=== PATIENT | female | born 1940 | race Caucasian/White ===

== ENCOUNTER 2018-10-12 14:59 | Emergency (ER) | payer MEDICARE ==
[~2018-10-12] VITALS: Ht 167.6 cm; Wt 81.7 kg
[~2018-10-12 14:59] MED LIST: AMLO5 PO; ASPI81CH PO; ESTR2 PO; FURO40 PO; Hydrocodone-Ap1 EA20 PO; LEVSOD88 PO; LOSARTAN POTAS100 MG PO; METCAR500 PO; Omeprazole20 M1; POTA10T PO; Pravachol40 MG PO; SPIR50 PO; SUMA5NI
[2018-10-12 15:47] LABS: BASOPHILS ABSOLUTE AUTO 0.03 K/mm3 (0.00-0.23); BASOPHILS PERCENT AUTO 0 % (0-2); EOSINOPHILS ABSOLUTE AUTO 0.03 K/mm3 (0.00-0.68); EOSINOPHILS PERCENT AUTO 0 % (0-6); Hematocrit 38.6 % (33.0-51.0); Hemoglobin 12.7 g/dL (11.5-16.0); IMMATURE GRAN ABSOLUTE AUTO 0.04 K/mm3 (0.00-0.10); IMMATURE GRAN PERCENT AUTO 1 % (0-1); LYMPHOCYTES ABSOLUTE AUTO 1.65 K/mm3 (0.84-5.20); LYMPHOCYTES PERCENT AUTO 20 % (21-46); MONOCYTES ABSOLUTE AUTO 0.33 K/mm3 (0.16-1.47); MONOCYTES PERCENT AUTO 4 % (4-13); Mean Corpuscular HGB 31.2 pg (26.0-34.0); Mean Corpuscular HGB Conc 32.9 g/dL (31.5-36.5); Mean Corpuscular Volume 95 fL (80-100); Mean Platelet Volume 9.7 fL (9.1-12.4); NEUTROPHILS ABSOLUTE AUTO 6.32 K/mm3 (1.96-9.15); NEUTROPHILS PERCENT AUTO 75 % (41-73); Platelet Count 326 K/mm3 (150-400); RDW Coefficient Variation 12.9 % (11.7-14.2); RDW Standard Deviation 44.5 fL (35.1-46.3); Red Blood Cell Count 4.07 M/mm3 (3.80-5.20)
[2018-10-12 16:31] LABS: Alanine Aminotransfer (ALT/SGP 30 U/L (12-78); Albumin, Blood 3.8 g/dL (3.4-5.0); Alk Phos 27 U/L (50-136); Anion Gap 6 mmol/L (6-16); Aspartate Aminotrans (AST/SGOT 25 U/L (12-37); Bilirubin, Total 0.3 mg/dL (0.1-1.0); Blood Urea Nitrogen 23 mg/dL (8-24); Bun/Creatinine Ratio 23.2 (12.0-20.0); CO2, Blood 30 mmol/L (21-32); Calcium, Blood 9.1 mg/dL (8.5-10.1); Chloride, Blood 103 mmol/L (98-108); Creatinine, Blood 0.99 mg/dL (0.40-1.00); Globulin, Blood 3.7 g/dL (2.2-4.0); Glomerular Filtration Rate 58 (60-); Glucose, Blood 114 mg/dL (70-99); Potassium, Blood 3.8 mmol/L (3.5-5.5); Sodium, Blood 139 mmol/L (136-145); Total Protein, Blood 7.5 g/dL (6.4-8.2); Troponin I <0.015 ng/mL (0.000-0.040)
[2018-10-12] MEDS ORDERED: FENO160 PO (17:51)
[2018-10-12] MEDS ORDERED: Carvedilol6.25 MG PO (17:54)
== END 2018-10-12 18:20 | disposition home or self-care (01) ==
LOC: ER 14:59
PROVIDERS: Physician Assistant
DX: R07.89 Other chest pain (principal); E03.9 Hypothyroidism, unspecified; K21.9 Gastro-esophageal reflux disease without esophagitis; I10 Essential (primary) hypertension; Z88.2 Allergy status to sulfonamides; Z88.8 Allergy status to other drugs, medicaments and biological substances; Z79.82 Long term (current) use of aspirin; Z79.899 Other long term (current) drug therapy
CPT/HCPCS: 36415; 71046; 80053; 84484; 85025; 93005; 93010; 99285-25

== ENCOUNTER → 2019-11-13 | Outpatient (CLI) | payer MEDICARE ==
[~2019-11-13] MED LIST changes: -ASPI81CH PO; +ATOR20 PO; +Aspir 8181 MG PO; +CALCIUM CARBON650 MG PO; +CENTRUM SILVER1 EAC2 PO; +Carvedilol6.25 MG PO; +Cranberry300 MG PO; +DICLOFENAC SOD100 GM TOP; -ESTR2 PO; +ESTRADIOL0.5 MG PO; +EUTHYROX88 MCG PO; +FENO160 PO; +FISH OIL-VIT D1 EACH PO; -LEVSOD88 PO; +MAGNESIUM OXID500 MG PO; +MELATONIN5 M1 PO; +MELATONIN5 M3; +MULVITB PO; +OXYC5 PO; -Omeprazole20 M1; +Omeprazole20 M1 PO; +Robaxin750 MG PO; +TOCO1000 PO; +TORSE20 PO; +UBID10 PO; +Vitamin B-121000 MCG PO
[2019-11-13 19:24] LABS: BASOPHILS ABSOLUTE AUTO 0.03 K/mm3 (0.00-0.23); BASOPHILS PERCENT AUTO 1 % (0-2); EOSINOPHILS ABSOLUTE AUTO 0.25 K/mm3 (0.00-0.68); EOSINOPHILS PERCENT AUTO 5 % (0-6); Hematocrit 39.3 % (33.0-51.0); Hemoglobin 12.6 g/dL (11.5-16.0); IMMATURE GRAN ABSOLUTE AUTO 0.01 K/mm3 (0.00-0.10); IMMATURE GRAN PERCENT AUTO 0 % (0-1); LYMPHOCYTES PERCENT AUTO 44 % (21-46); MONOCYTES ABSOLUTE AUTO 0.38 K/mm3 (0.16-1.47); MONOCYTES PERCENT AUTO 8 % (4-13); Mean Corpuscular HGB 30.6 pg (26.0-34.0); Mean Corpuscular HGB Conc 32.1 g/dL (31.5-36.5); Mean Corpuscular Volume 95 fL (80-100); Mean Platelet Volume 10.7 fL (9.1-12.4); NEUTROPHILS ABSOLUTE AUTO 2.14 K/mm3 (1.96-9.15); NEUTROPHILS PERCENT AUTO 43 % (41-73); Platelet Count 269 K/mm3 (150-400); RDW Standard Deviation 42.5 fL (35.1-46.3); Red Blood Cell Count 4.12 M/mm3 (3.80-5.20); White Blood Cell Count 5.01 K/mm3 (4.00-11.30)
[2019-11-13 20:29] LABS: Albumin, Blood 4.2 g/dL (3.4-5.0); Albumin/Globulin Ratio 1.2 (0.8-1.8); Bilirubin, Total 0.2 mg/dL (0.1-1.0); Bun/Creatinine Ratio 28.9 (12.0-20.0); Calcium, Blood 10.5 mg/dL (8.5-10.1); Creatinine, Blood 1.28 mg/dL (0.40-1.00); Globulin, Blood 3.6 g/dL (2.2-4.0); Potassium, Blood 3.8 mmol/L (3.5-5.5); Total Protein, Blood 7.8 g/dL (6.4-8.2)
== END | disposition home or self-care (01) ==
LOC: LAB 19:11 → LAB SHORT 19:11
PROVIDERS: Emergency Medicine
DX: R42 Dizziness and giddiness (principal)
CPT/HCPCS: 80053; 85025

== ENCOUNTER 2019-11-28 14:43 | Inpatient (IN) | payer MEDICARE ==
[~2019-11-28] VITALS: Ht 167.6 cm; Wt 80.1 kg
[~2019-11-28 14:43] MED LIST changes: -ATOR20 PO; -Aspir 8181 MG PO; -CALCIUM CARBON650 MG PO; -CENTRUM SILVER1 EAC2 PO; -Carvedilol6.25 MG PO; -Cranberry300 MG PO; -DICLOFENAC SOD100 GM TOP; -ESTRADIOL0.5 MG PO; -EUTHYROX88 MCG PO; -FENO160 PO; -FISH OIL-VIT D1 EACH PO; -LOSARTAN POTAS100 MG PO; -MAGNESIUM OXID500 MG PO; -MELATONIN5 M1 PO; -MELATONIN5 M3; -MULVITB PO; -OXYC5 PO; -Omeprazole20 M1 PO; -POTA10T PO; -Robaxin750 MG PO; -TOCO1000 PO; -TORSE20 PO; -UBID10 PO; -Vitamin B-121000 MCG PO
[2019-11-28 15:38] LABS: BASOPHILS ABSOLUTE AUTO 0.02 K/mm3 (0.00-0.23); BASOPHILS PERCENT AUTO 0 % (0-2); EOSINOPHILS ABSOLUTE AUTO 0.26 K/mm3 (0.00-0.68); EOSINOPHILS PERCENT AUTO 5 % (0-6); Hematocrit 37.3 % (33.0-51.0); Hemoglobin 11.9 g/dL (11.5-16.0); IMMATURE GRAN PERCENT AUTO 0 % (0-1); LYMPHOCYTES ABSOLUTE AUTO 2.11 K/mm3 (0.84-5.20); LYMPHOCYTES PERCENT AUTO 43 % (21-46); MONOCYTES ABSOLUTE AUTO 0.38 K/mm3 (0.16-1.47); MONOCYTES PERCENT AUTO 8 % (4-13); Mean Corpuscular HGB 30.4 pg (26.0-34.0); Mean Corpuscular HGB Conc 31.9 g/dL (31.5-36.5); Mean Corpuscular Volume 95 fL (80-100); Mean Platelet Volume 10.5 fL (9.1-12.4); NEUTROPHILS ABSOLUTE AUTO 2.11 K/mm3 (1.96-9.15); NEUTROPHILS PERCENT AUTO 43 % (41-73); Platelet Count 299 K/mm3 (150-400); RDW Standard Deviation 41.9 fL (35.1-46.3); Red Blood Cell Count 3.91 M/mm3 (3.80-5.20); White Blood Cell Count 4.88 K/mm3 (4.00-11.30)
[2019-11-28 16:14] LABS: Alanine Aminotransfer (ALT/SGP 20 U/L (12-78); Albumin, Blood 3.8 g/dL (3.4-5.0); Alk Phos 37 U/L (50-136); Anion Gap 6 mmol/L (6-16); Aspartate Aminotrans (AST/SGOT 16 U/L (12-37); Bilirubin, Total 0.2 mg/dL (0.1-1.0); Blood Urea Nitrogen 28 mg/dL (8-24); Bun/Creatinine Ratio 25.2 (12.0-20.0); CO2, Blood 29 mmol/L (21-32); Calcium, Blood 9.7 mg/dL (8.5-10.1); Chloride, Blood 105 mmol/L (98-108); Creatinine, Blood 1.11 mg/dL (0.40-1.00); Glomerular Filtration Rate 51 (60-); Glucose, Blood 96 mg/dL (70-99); Potassium, Blood 4.2 mmol/L (3.5-5.5); Sodium, Blood 140 mmol/L (136-145); Total Protein, Blood 7.8 g/dL (6.4-8.2); Troponin I <0.015 ng/mL (0.000-0.040)
[2019-11-28] MEDS ORDERED: FISH OIL-VIT D1 EACH PO (16:19)
[2019-11-28] MEDS ORDERED: MULVITB PO (16:21)
[2019-11-28] MEDS ORDERED: CENTRUM SILVER1 EAC2 PO (16:21)
[2019-11-28] MEDS ORDERED: CALCIUM CARBON650 MG PO (16:23)
[2019-11-28] MEDS ORDERED: TOCO1000 PO (16:23)
[2019-11-28] MEDS ORDERED: MAGNESIUM OXID500 MG PO (16:24)
[2019-11-28] MEDS ORDERED: UBID10 PO (16:24)
[2019-11-28] MEDS ORDERED: DICLOFENAC SOD100 GM TOP (16:24)
[2019-11-28] MEDS ORDERED: Robaxin750 MG PO (16:29)
[2019-11-28] MEDS ORDERED: Cranberry300 MG PO (16:30)
[2019-11-28] MEDS ORDERED: OXYC5 PO ×2 (16:32→20:46)
[2019-11-28] MEDS ORDERED: Vitamin B-121000 MCG PO (16:33)
[2019-11-28] MEDS ORDERED: MELATONIN5 M1 PO (16:33)
[2019-11-28] MEDS ORDERED: POTA10T PO (18:24)
[2019-11-28] MEDS ORDERED: LOSARTAN POTAS100 MG PO (18:25)
[2019-11-28] MEDS ORDERED: Omeprazole20 M1 PO (18:25)
[2019-11-28] MEDS ORDERED: FENO160 PO (18:25)
[2019-11-28] MEDS ORDERED: TORSE20 PO (18:26)
[2019-11-28] MEDS ORDERED: Carvedilol6.25 MG PO (18:27)
[2019-11-28] MEDS ORDERED: EUTHYROX88 MCG PO (18:27)
[2019-11-28] MEDS ORDERED: ESTRADIOL0.5 MG PO (18:28)
[2019-11-28] MEDS ORDERED: Aspir 8181 MG PO (18:29)
[2019-11-28 19:24] LABS: International Normalized Ratio 0.99; Prothrombin Time Results 10.6 Sec (9.7-11.5)
[2019-11-28] MEDS ORDERED: MELATONIN5 M3 (20:44)
--- NOTE | 2019-11-28 21:00 | NUR ---
PATIENT ADMITTED TO THE FLOOR FOR CHEST PAIN, UNSTABLE ANGINA. AOX3, INDEPENDENT, VERY ACTIVE IN LIFE. 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 HAS BEEN HAVING CHEST PRESSURE MID STERNUM OFF AND ON FOR SEVERAL WEEKS, BUT CONSTANT THE LAST FEW DAYS. PRESSURE GOT MORE SEVERE TONIGHT RANGING AROUND 8/10. SHE HAS BEEN HAVING SOB WHEN SHE WALKS ACROSS HER HOME, LIGHTHEADNESS, BLURRED VISION OFF AND ON, DECREASE IN HER ACTVITY, AND FEELING MORE FATIQUED THEN USUAL. WEIGHT GAIN OF 6 LBS SHE REPORTS, HX OF CKD. NO EDEMA NOTED AT THIS TIME. STATES SHE FEELS LIKE IT COMES AROUND HER ABDOMIN. ABDOMIN SOFT AND ROUND, BT X4, HAD BM BUT FEELS SHE IS MORE ON THE CONSTIPATED SIDE. PRESSURE GETS BETTER WHEN SHE IS LAYING DOWN AND INCREASES WITH ACTIVITY. BP AT HOME HAS RANGED IN THE 140'S AND HR IS ALWAYS 50-60'S. SHE DOES GET OCCATIONAL HEADACHES AND RACING OF THE HEART. SHE IS SUPPOSE TO HAVE ZIO PATCH PLACED FOR 3 DAYS BUT HAS NOT HAD IT DONE. ANGIOGRAM PLANNED FOR AM. REST OF ASSESSMENT BENIGN. CALL LIGHT IN REACH. WILL ADMINISTER HER MEDS.
[2019-11-29 05:30] LABS: Albumin, Blood 3.1 g/dL (3.4-5.0); Albumin/Globulin Ratio 0.9 (0.8-1.8); Bilirubin, Total 0.2 mg/dL (0.1-1.0); Bun/Creatinine Ratio 21.8 (12.0-20.0); Calcium, Blood 8.7 mg/dL (8.5-10.1); Creatinine, Blood 1.01 mg/dL (0.40-1.00); Globulin, Blood 3.5 g/dL (2.2-4.0); Potassium, Blood 3.7 mmol/L (3.5-5.5); Total Protein, Blood 6.6 g/dL (6.4-8.2)
--- NOTE | 2019-11-29 05:31 | NUR ---
SHIFT SUMMARY: PT WAS ADMITTED TO THE FLOOR FOR UNSTABLE ANGINA. CHEST PRESSURE FOR SEVERAL WEEKS BUT MORE CONSISTENT THE LAST SEVERAL DAYS. PRESSURE IS MIDSTERNUM, GETS WORSE WITH EATING AND DRINKING. OTHER SYMPTOMS INCLUDE: LIGHTHEADNESS OFF AND ON, BLURRED VISION, SOB WITH EXERTION, WEIGHT GAIN OF 6 LBS, FATIQUE, HEADACHES, RACING OF THE HEART. BLOOD PRESSURE AT HOME HAS BEEN IN THE 140'S, AND HR 50-60'S. HERE BP ALSO 140'S. VS WNL, AFEBRILE. IV HEPARIN STARTED AND NS RUNNING AT 100ML/HR. NPO AT MIDNIGHT. TELE RUNNING SINUS RYTHEM ALL NIGHT WITH NO EVENTS. WILL CONTINUE TO MONITOR, CALL LIGHT IN REACH.
[2019-11-29 08:16] LABS: CHOL/HDL RATIO 3.1; Cholesterol 196 mg/dL (50-200); HDL Cholesterol 64 mg/dL (>39); LDL/HDL RATIO 1.5; Low Density Lipoprotein Chol 97 mg/dL (0-110); Triglycerides 175 mg/dL (30-160); Very Low Density Lipoprot Chol 35 mg/dL (6-32)
--- NOTE | 2019-11-29 13:09 | NUR ---
Echocardiogram completed.
--- NOTE | 2019-11-29 18:24 | NUR ---
SHIFT SUMMARY PT A/O X4; PLEASANT AND IND IN THE ROOM. PT C/O OF "PRESSURE" IN HER CHEST THAT HAS REMAINED UNCHANGED SINCE ADMISSION. PT IS ON A HEPARIN DRIP AND HAD AN ECHO THIS AM. PT WAS TO HAVE AN ANGIO TODAY BUT IT HAS BEEN RESCHEDULED FOR TOMORROW DUE TO TIME CONSTRAINTS. CARDIAC DIET BUT NPO AT MIDNIGHT. VSS.
--- NOTE | 2019-11-29 19:29 | NUR ---
ASSUMED CARE. [place] REPORTS NO CHANGE. STILL HAVING SOB ON EXERTION. BLURRED VISION AND LIGHTHEADNESS OFF AND ON. EDEMA NOTED TO BLE +1, AND TRACE IN HANDS. CHEST PRESSURE IS UNCHANGED, DID REPORT IT GOT BETTER WHEN SHE WAS LAYING DOWN. ABDOMIN SOFT, TENDER, SEVERAL BM NOTED TODAY WITH LAST BEING LOOSE. WILL HOLD BOWEL CARE. DENIES ANY NEEDS AT THIS TIME. TELE SINUS. VS WNL. CALL LIGHT IN REACH.
--- NOTE | 2019-11-30 05:58 | NUR ---
SHIFT SUMMARY: PATIENT HAD A GOOD NIGHT. CHEST PRESSURE REMAINED THE SAME BUT OTHER SYMPTOMS WERE MINIMAL TO NONE. SHE HAD NO COMPLAINTS THIS SHIFT, WAS UP IN ROOM ON PHONE SITTING IN CHAIR. APPETITE IS GOOD, GOOD FLUID INTAKE. BLURRED VISION AND LIGHTHEADNESS STILL COMES AND GOES BUT NOT MUCH BEFORE SHE WAS HERE. HEPARIN DRIP ADJUSTED TWICE THIS SHIFT PER PHARMACY. IV FLUIDS CONTINUE TO INFUSE. NPO AFTER MIDNIGHT. NO ACUTE CHANGES WERE NOTED THIS SHIFT. CALL LIGHT IN REACH. VS WNL.
--- NOTE | 2019-11-30 11:27 | NUR ---
PT ARRIVED TO PCU 4 VIA BED FROM [facility] [place], SHE IS AWAKE IN GOOD CONDITION, TR BAND SITE IS CLEAR AND NO S/S OF BLEEDING OR BRUISING AT THIS TIME. NO INTERVENTION WAS DONE, WILL START DEFLATING IN AN HR. SHE STATES SHE FEELS OK. CALL LIGHT IN REACH.
--- NOTE | 2019-11-30 12:54 | NUR ---
HAVE STARTED DEFLATING THE TR BAND, DOING WELL, NO COMPLAINTS, V.S. STABLE. CALL LIGHT IN REACH.
--- NOTE | 2019-11-30 13:26 | NUR ---
TR BAND DEFLATED, WILL LEAVE ON FOR ONE HR, THEN REMOVE AND PLACE DRESSING IN PLACE. ALICIA IN TO SEE HER. CALL LIGHT IN REACH.
--- NOTE | 2019-11-30 14:40 | NUR ---
Patient is is sitting on EOB and alert. Patient tells me about her heart issues, the of her spouse, Ariel, on 05/29/19 and her nikki and family support system. I normalize patient's experience and provide therapeutic listening, grief support, pastoral certified addiction counselor and prayer. Patient responds well and displays evidence of catharsis and being comforted. I will continue to remain available to patient and family.
--- NOTE | 2019-11-30 17:29 | NUR ---
PT IS BEING DISCHARGED TO HOME, TR BAND IS OFF AND DRESSING IN PLACE WITH ARM BOARD IN PLACE, SHE REPORTS A BIT OF STINGING AT ACCESS SIGHT, BUT LOOKS OK, SHE IS EATING DINNER, AND WILL DISCHARGE AFTER SHE FINISHES. VALENCIA LIGHT IN REACH.
[2019-11-30] MEDS ORDERED: ATOR20 PO (18:09)
--- NOTE | 2019-11-30 18:56 | NUR ---
went over all discharge instructions with pt. she verbalized understanding, iv's removed intact, gave her preprinted instructions for tr band care, carefully went over them with her. she has all her belongings with her, new medication was called into [facility], will leave via wheelchair when her ride is here.
== END 2019-11-30 19:15 | disposition home or self-care (01) | DRG 287 ==
LOC: ER 14:43 → MEDS 18:50 → PCU 11-30 11:22
PROVIDERS: Family Medicine; Physician Assistant; ADMIT Hospitalist
PROC: 4A023N7 Measurement of Cardiac Sampling and Pressure, Left Heart, Percutaneous Approach (ICD-10-PCS; principal; 2019-11-30)
PROC: B2111ZZ Fluoroscopy of Multiple Coronary Arteries using Low Osmolar Contrast (ICD-10-PCS; 2019-11-30)
DX: I25.110 Atherosclerotic heart disease of native coronary artery with unstable angina pectoris (principal); I13.0 Hypertensive heart and chronic kidney disease with heart failure and stage 1 through stage 4 chronic kidney disease, or unspecified chronic kidney disease; I50.32 Chronic diastolic (congestive) heart failure; Z79.82 Long term (current) use of aspirin; N18.31 Chronic kidney disease, stage 3a; K21.9 Gastro-esophageal reflux disease without esophagitis; E03.9 Hypothyroidism, unspecified; E78.00 Pure hypercholesterolemia, unspecified
CPT/HCPCS: 36415; 71046; 76937; 80053; 80061; 83036; 83880; 84484; 85025; 85347; 85610; 85730; 93005; 93010; 93306; 93454; 93571; 99152; 99153; 99285-25; A9270-GY; C1769; C1887; C1894; J1644; J2250; J3010; J7030; J7050; Q9967

== ENCOUNTER 2020-05-05 08:34 | Day surgery (SDC) | payer MEDICARE ==
[~2020-05-05] VITALS: Ht 167.6 cm; Wt 75.1 kg
[~2020-05-05 08:34] MED LIST changes: +ACET500 PO; +ANORO ELLIPTA1 EAC1 INH; +ARTIFICIAL TEAR15 M2 OP; +ATOR20 PO; +ATOR40TA PO; +Alph-E-Mixed400 UNIT PO; +Aspir 8181 MG PO; +CALCIUM CARBON650 MG PO; +CENTRUM SILVER1 EAC2 PO; +COENZYME Q10100 MG PO; +Carvedilol6.25 MG PO; +Colace100 MG PO; +Cranberry300 MG PO; +DICLOFENAC SOD100 GM TOP; +ESTRADIOL0.5 MG PO; +ESTRADIOL1 MG PO; +EUTHYROX88 MCG PO; +FENO160 PO; +FISH OIL 1,2001 EAC1 PO; +FISH OIL-VIT D1 EACH PO; +LOSARTAN POTAS100 M1 PO; +LOSARTAN POTAS100 MG PO; +LUTEIN20 MG PO; +MAGNESIUM OXID500 M1 PO; +MAGNESIUM OXID500 MG PO; +MELATONIN5 M1 PO; +MELATONIN5 M3; +MULTIPLE VITAM1 EACH PO; +MULVITB PO; +MUPIROCIN15 GM; +OMEP20ER PO; +OXYC5 PO; +Omeprazole20 M1 PO; +POTA10T PO; +PROBIOTIC1 EA13 PO; +Robaxin750 MG PO; +SPIR25 PO; +TOCO1000 PO; +TORSE20 PO; +TRIA15CR3; +UBID10 PO; +Vibramycin50 MG PO; +Vitamin B-121000 MCG PO
== END 2020-05-05 11:15 | disposition home or self-care (01) ==
LOC: ORSCSDS 08:34
PROVIDERS: Student in an Organized Health Care Education/Training Program
PROC: 0DB58ZX Excision of Esophagus, Via Natural or Artificial Opening Endoscopic, Diagnostic (ICD-10-PCS; principal; 2020-05-05 09:45)
PROC: 0DBH8ZX Excision of Cecum, Via Natural or Artificial Opening Endoscopic, Diagnostic (ICD-10-PCS; principal; 2020-05-05 09:45)
PROC: 0DBL8ZX Excision of Transverse Colon, Via Natural or Artificial Opening Endoscopic, Diagnostic (ICD-10-PCS; principal; 2020-05-05 09:45)
PROC: 0DBK8ZX Excision of Ascending Colon, Via Natural or Artificial Opening Endoscopic, Diagnostic (ICD-10-PCS; principal; 2020-05-05 09:45)
PROC: 0DB78ZX Excision of Stomach, Pylorus, Via Natural or Artificial Opening Endoscopic, Diagnostic (ICD-10-PCS; principal; 2020-05-05 09:45)
DX: K31.89 Other diseases of stomach and duodenum (principal); Z12.11 Encounter for screening for malignant neoplasm of colon; Z86.010 Personal history of colon polyps; D12.0 Benign neoplasm of cecum; D12.2 Benign neoplasm of ascending colon; D12.3 Benign neoplasm of transverse colon; K31.7 Polyp of stomach and duodenum; K29.70 Gastritis, unspecified, without bleeding; K44.9 Diaphragmatic hernia without obstruction or gangrene; K57.30 Diverticulosis of large intestine without perforation or abscess without bleeding; K64.8 Other hemorrhoids; K64.4 Residual hemorrhoidal skin tags; I25.10 Atherosclerotic heart disease of native coronary artery without angina pectoris; N18.9 Chronic kidney disease, unspecified; K21.9 Gastro-esophageal reflux disease without esophagitis; I10 Essential (primary) hypertension; E03.9 Hypothyroidism, unspecified; R73.03 Prediabetes; Z79.899 Other long term (current) drug therapy
CPT/HCPCS: 88305; 88341; 88342; J2704; J7120

== ENCOUNTER → 2021-03-26 | Outpatient (CLI) | payer MEDICARE ==
[2021-03-26 14:30] LABS: Source, Urine Voided
[2021-03-26 16:22] LABS: Appearance, Urine Cloudy (Clear); Bilirubin, Urine Neg (Neg); Blood, Urine 4+ (Neg); Color, Urine Yellow (P-Yellow); Glucose Qualitative, Urine Neg (Neg); Ketones, Urine Neg (Neg); Leukocyte Esterase, Urine 3+ (Neg); Nitrite, Urine Neg (Neg); Protein, Urine 3+ (Neg); Urobilinogen, Urine NORM (Normal)
[2021-03-26 16:23] LABS: Protein, Urine Random 51.8 mg/dL (0.0-11.9); Protein/Creat Ratio, Ur Random 0.4
[2021-03-26 16:44] LABS: Bacteria Many /hpf; Squamous Epithelial Cells Few /hpf (Few); White Blood Cells, Urine TNTC /hpf (0-5)
== END | disposition home or self-care (01) ==
LOC: LAB SHORT 11:00
PROVIDERS: Internal Medicine Nephrology
DX: I12.9 Hypertensive chronic kidney disease with stage 1 through stage 4 chronic kidney disease, or unspecified chronic kidney disease (principal); N18.31 Chronic kidney disease, stage 3a; R39.9 Unspecified symptoms and signs involving the genitourinary system
CPT/HCPCS: 81001; 82570; 84156

== ENCOUNTER → 2021-09-28 | Outpatient (CLI) | payer MEDICARE ==
[2021-09-28 16:32] LABS: Source, Urine Voided
[2021-09-28 17:30] LABS: Appearance, Urine Cloudy (Clear); Bilirubin, Urine Neg (Neg); Blood, Urine 5+ (Neg); Color, Urine Yellow (P-Yellow); Glucose Qualitative, Urine Neg (Neg); Ketones, Urine 1+ (Neg); Leukocyte Esterase, Urine 3+ (Neg); Nitrite, Urine Neg (Neg); Protein, Urine 3+ (Neg); Urobilinogen, Urine NORM (Normal)
[2021-09-28 17:58] LABS: Red Blood Cells, Urine TNTC /hpf (0-2); White Blood Cells, Urine TNTC /hpf (0-5)
[2021-09-28 17:59] LABS: Bacteria Mod /hpf; Hyaline Casts 0-2 /lpf (0-2); RBC Cast 0-2 /lpf (0); Squamous Epithelial Cells Few /hpf (Few)
== END | disposition home or self-care (01) ==
LOC: LAB SHORT 16:29
PROVIDERS: Internal Medicine Nephrology
DX: R39.9 Unspecified symptoms and signs involving the genitourinary system (principal)
CPT/HCPCS: 81001; 87077; 87086; 87186

== ENCOUNTER 2022-09-23 12:08 | Emergency (ER) | payer OTHER, MEDICARE | END 2022-09-23 13:44 | disposition home or self-care (01) | LOC: ER 12:08 | DX: M25.562 Pain in left knee (principal); W01.198A Fall on same level from slipping, tripping and stumbling with subsequent striking against other object, initial encounter; I12.9 Hypertensive chronic kidney disease with stage 1 through stage 4 chronic kidney disease, or unspecified chronic kidney disease; N18.30 Chronic kidney disease, stage 3 unspecified; K21.9 Gastro-esophageal reflux disease without esophagitis; E03.9 Hypothyroidism, unspecified; Z88.2 Allergy status to sulfonamides; Z88.8 Allergy status to other drugs, medicaments and biological substances; Z79.899 Other long term (current) drug therapy ==

== ENCOUNTER → 2022-12-11 | Outpatient (CLI) | payer MEDICARE | LOC: LAB SHORT 14:45 → LAB 14:45 | DX: R30.0 Dysuria (principal) | CPT/HCPCS: 87077; 87086; 87186 ==

== ENCOUNTER → 2023-03-17 | Outpatient (CLI) | payer MEDICARE | LOC: LAB 12:00 → LAB SHORT 12:00 | DX: R30.0 Dysuria (principal) | CPT/HCPCS: 87086 ==

== ENCOUNTER → 2023-11-04 | Outpatient (CLI) | payer MEDICARE | LOC: LAB SHORT 16:25 → LAB 16:25 | DX: R30.0 Dysuria (principal); R35.0 Frequency of micturition | CPT/HCPCS: 87077; 87086; 87186 ==

== ENCOUNTER → 2024-08-13 | Outpatient (CLI) | payer MEDICARE ==
[2024-08-13 17:13] LABS: Adenovirus F 40/41 Not Detected (NOT DETECT); Astrovirus Not Detected (NOT DETECT); Campylobacter Sp Not Detected (NOT DETECT); Cryptosporidium Not Detected (NOT DETECT); Cyclospora Cayetanensis Not Detected (NOT DETECT); E. Coli O157 Not Detected (NOT DETECT); Entamoeba Histolytica Not Detected (NOT DETECT); Enteroaggregative E. coli-EAEC Not Detected (NOT DETECT); Enteropathogenic E. coli-EPEC Not Detected (NOT DETECT); Enterotoxigenic E. coli-ETEC Not Detected (NOT DETECT); Giardia Lamblia Not Detected (NOT DETECT); Norovirus GI/GII Not Detected (NOT DETECT); Plesiomonas Shigelloides Not Detected (NOT DETECT); Rotavirus A Not Detected (NOT DETECT); Salmonella Sp Not Detected (NOT DETECT); Sapovirus Not Detected (NOT DETECT); Shiga Toxin-prod E. coli-STEC Not Detected (NOT DETECT); Shigella/Enteroin E. coli-EIEC Not Detected (NOT DETECT); Vibrio Cholerae Not Detected (NOT DETECT); Vibrio Sp Not Detected (NOT DETECT); Yersinia Enterocolitica Not Detected (NOT DETECT)
== END | disposition home or self-care (01) ==
LOC: LAB 09:24 → LAB SHORT 09:24
PROVIDERS: Physician Assistant
DX: R10.84 Generalized abdominal pain (principal); R14.0 Abdominal distension (gaseous); R14.3 Flatulence; R14.1 Gas pain; R14.2 Eructation
CPT/HCPCS: 87507